=== PATIENT | male | born 1960 | race Two or more races ===

== ENCOUNTER 2025-02-26 12:06 | Outpatient (CLI) | payer OTHER ==
[2025-02-26 12:53] LABS: Hematocrit 42.2 % (41.0-53.0); Hemoglobin 14.4 g/dL (13.5-17.5); Mean Corpuscular Hemoglobin 30.6 pg (28.0-32.0); Mean Corpuscular Volume 90.0 fL (80.0-100.0); Nucleated Red Blood Cells % 0.1 %
[2025-02-26 13:07] LABS: Urine Protein, UAD Negative (Negative)
[2025-02-26 13:15] LABS: Alanine Aminotransferase 29 U/L (7-40); Albumin 4.8 g/dL (3.2-4.8); Alkaline Phosphatase 66 U/L (46-116); Anion Gap 9 (5-15); BUN/Creatinine Ratio 8.7 (10.0-20.0); Calcium 9.8 mg/dL (8.7-10.4); Carbon Dioxide 27 mmol/L (20-31); Chloride 105 mmol/L (98-107); Cholesterol 199 mg/dL (< 200); Glucose 92 mg/dL (74-106); Magnesium 1.9 mg/dL (1.6-2.6); Potassium 4.0 mmol/L (3.5-5.1); Sodium 141 mmol/L (136-145); Total Protein 7.4 g/dL (5.7-8.2); Triglycerides 96 mg/dL (< 150)
[2025-02-26 13:16] LABS: Bilirubin, Total 0.6 mg/dL (0.2-1.0)
[2025-02-26 13:18] LABS: Blood Urea Nitrogen 8 mg/dL (9-23); HDL Cholesterol 64 mg/dL (40-59)
[2025-02-26 13:19] LABS: Prostate Specific Antigen 5.97 ng/mL (0.0-4.0)
[2025-02-27 08:07] LABS: Prostate Specific Antigen 6.4 ng/mL (0.0-4.0)
== END 2025-02-26 17:00 | disposition home or self-care (01) ==
LOC: LAB 12:06
PROVIDERS: ATTEND Student in an Organized Health Care Education/Training Program
DX: E55.9 Vitamin D deficiency, unspecified (principal); D50.0 Iron deficiency anemia secondary to blood loss (chronic); R03.0 Elevated blood-pressure reading, without diagnosis of hypertension; R73.9 Hyperglycemia, unspecified; R35.1 Nocturia
CPT/HCPCS: 36415; 80053; 80061; 81001; 82306; 82607; 83036; 83735; 84153; 84154; 84443; 85025

== ENCOUNTER 2025-02-26 12:39 | Inpatient (IN) | payer OTHER ==
[~2025-02-26] VITALS: Ht 170.2 cm; Wt 76.2 kg
--- NOTE | 2025-02-26 13:14 | DVH ---
EXAM: XY CHEST PORTABLE HISTORY: htn COMPARISON: None TECHNIQUE: Portable AP view of the chest was performed. FINDINGS: No pneumothorax, consolidative infiltrates, or pulmonary edema. There is mild central peribronchial t hickening. The heart is not enlarged. There is thoracic degenerative disc disease and slight dextrosc oliosis. The humeral heads are high-riding consistent with significant rotator cuff tendinopathy bila terally. IMPRESSION: 1. Reactive airways disease. 2. The lungs are otherwise clear.
[2025-02-26 13:27] LABS: Hematocrit 42.1 % (41.0-53.0); Hemoglobin 14.4 g/dL (13.5-17.5); Mean Corpuscular Hemoglobin 30.8 pg (28.0-32.0); Mean Corpuscular Volume 90.1 fL (80.0-100.0); Nucleated Red Blood Cells % 0.1 %
[2025-02-26 13:35] LABS: Chloride 105 mmol/L (98-107); Potassium 4.0 mmol/L (3.5-5.1); Sodium 139 mmol/L (136-145)
[2025-02-26 13:36] LABS: Calcium 9.7 mg/dL (8.7-10.4)
[2025-02-26 13:41] LABS: Blood Urea Nitrogen 10 mg/dL (9-23); Glucose 95 mg/dL (74-106)
[2025-02-26 13:45] LABS: Anion Gap 7 (5-15); BUN/Creatinine Ratio 10.6 (10.0-20.0); Carbon Dioxide 27 mmol/L (20-31)
[2025-02-26] MEDS: hydrALAZINE HCL 20 MG/ML VL IV ONE (15:34)
[2025-02-26 16:35] VITALS: PULSE 122; RESP 13; O2SAT 100
[2025-02-26] MEDS: LABETALOL HCL 20 MG/4 ML VL IV ONE (18:29)
[2025-02-26] MEDS ORDERED: ONDANSETRON HCL 4 MG/2 ML VIAL IV PRN (18:45)
[2025-02-26] MEDS ORDERED: MORPHINE SULFATE INJ 2 MG/ml SYRG IV PRN (18:45)
[2025-02-26] MEDS ORDERED: NITROGLYCERIN 0.4 MG SL TAB SL PRN (18:45)
[2025-02-26] MEDS ORDERED: hydrALAZINE HCL 20 MG/ML VL IV PRN (18:45)
[2025-02-26 19:30] VITALS: O2SAT 100
[2025-02-26 21:45] VITALS: BP 162/84; PULSE 86; RESP 18; TEMP 98.1; O2SAT 98
[2025-02-26 22:32] VITALS: BP 162/84; PULSE 86; RESP 18; TEMP 98.1; O2SAT 98
[2025-02-26] MEDS: METOPROLOL TARTRATE 25 MG TAB PO SCH (22:46)
[2025-02-27] VITALS (8 sets, daily range): BP systolic 124–174; BP diastolic 62–88; PULSE 66–83; RESP 16–20; TEMP 97.8–98.1; O2SAT 96–100
--- NOTE | 2025-02-27 11:15 | ED.PDOC ---
HPI Comments 64-year-old male who presents to the ED for chief complaint of high blood pressure. Patient states that he does not have history of high blood pressure but noted over the past week checks his blood pressure at home and states it was elevated. Patient states he had primary care appointment last Sunday and states PCP told him that his blood pressure was elevated but was not placed on medication. Patient states over the past few days he has been checking his blood pressure at home and states it was elevated and further evaluation. Patient in the ED has blood pressure 204/106 with otherwise stable vitals. Patient now in the ED otherwise denies any other symptoms. Chief Complaint: High Blood Pressure Time Seen by MD: 14:07 Reviewed Notes: Medications, Allergies Allergies: Coded Allergies: NO KNOWN ALLERGIES (Unverified , 02/26/25) Information Source: Patient Mode of Arrival: Ambulatory Brought in by: Self Past Medical History PAST MEDICAL HISTORY: Denies Surgical History: Denies all surgeries Family History Family History: Reviewed,noncontributory to illness Social History Smoker: Non-Smoker Alcohol: Denies ETOH Use Drugs: Denies Drug Use Lives In: Home Constitutional: denies: chills, diaphoresis, fatigue, fever, malaise, sweats, weakness, others EENTM: denies: blurred vision, double vision, ear bleeding, ear discharge, ear drainage, ear pain, ear ringing, eye pain, eye redness, hearing loss, mouth pain, mouth swelling, nasal discharge, nose bleeding, nose congestion, nose pain, photophobia, tearing, throat pain, throat swelling, voice changes, others Respiratory: denies: cough, hemoptysis, orthopnea, SOB at rest, shortness of breath, SOB with excertion, stridor, wheezing, others Cardiovascular: denies: chest pain, dizzy spells, diaphoresis, Dyspnea on exertion, edema, irregular heart beat, left arm pain, lightheadedness, palpitations, PND, syncope, others Gastrointestinal: denies: abdomen distended, abdominal pain, blood streaked bowels, constipated, diarrhea, dysphagia, difficulty swallowing, hematemesis, melena, nausea, poor appetite, poor fluid intake, rectal bleeding, rectal pain, vomiting, others Genitourinary: denies: burning, dysuria, flank pain, frequency, hematuria, incontinence, penile discharge, penile sore, pain, testicle pain, testicle swelling, urgency, others Neurological: denies: dizziness, fainting, headache, left sided numbness, left sided weakness, numbness, paresthesia, pre-existing deficit, right sided numbness, right sided weakness, seizure, speech problems, tingling, tremors, weakness, others Musculoskeletal: denies: back pain, gout, joint pain, joint swelling, muscle pain, muscle stiffness, neck pain, others Integumetry: denies: bruises, change in color, change in hair/nails, dryness, laceration, lesions, lumps, rash, wounds, others Allergic/Immunocompromised: denies: Difficulty Healing, Frequent Infections, Hives, Itching, others Hematologic/Lymphatic: denies: anemia, blood clots, easy bleeding, easy bruising, swollen glands, others Endocrine: denies: excessive hunger, excessive sweating, excessive thirst, excessive urination, flushing, intolerance to cold, intolerance to heat, unexp lained weight gain, unexplained weight loss, others Psychiatric: denies: anxiety, bipolar disorder, depression, hopeless, panic disorder, schizophrenia, sleepless, suicidal, others All Other Systems: Reviewed and Negative Physical Exam General Appearance: No Apparent Distress, Normal HEENT: Normal ENT Inspection, Pharynx Normal, TMs Normal Neck: Full Range of Motion, Non-Tender, Normal, Normal Inspection Respiratory: Chest Non-Tender, Lungs Clear, No Accessory Muscle Use, No Respiratory Distress, Normal Breath Sounds Cardiovascular: No Edema, No JVD, No Murmur, No Gallop, Normal Peripheral Pulse s, Regular Rate/Rhythm Breast Exam: Deferred Gastrointestinal: No Organomegaly, Non Tender, No Pulsatile Mass, Normal Bowel Sounds, Soft Genitalia: Deferred Pelvic: Deferred Rectal: Deferred Extremities: No calf tenderness, Normal capillary refill, Normal inspection, Normal range of motion, Non-tender, No pedal edema Musculoskeletal : Apperance: Normal Neurologic: Alert, way inspector II-XII nml as Tested, No Motor Deficits, Normal Affect, Normal Mood, No Sensory Deficits Cerebellar Function: Normal Reflexes: Normal Skin: Dry, Normal Color, Warm Lymphatic: No Adenopathy Was a procedure done? Was a procedure done?: No CP Differential Dx Differential Diagnosis: Angina Differential Diagnosis: HTN Essential, HTN Accelerated Differential Diagnosis: Chest Wall Pain, Costochondritis X-Ray, Labs, Meds, VS Vital Signs Date Time Temp Pulse Resp B/P (MAP) Pulse Ox O2 Delivery O2 Flow Rate FiO2 02/26/25 16:35 97.9 122 13 223/98 (139) 100 97.9 02/26/25 16:35 122 13 100 Room Air* 0 21 02/26/25 16:12 108 18 204/111 (142) 98 02/26/25 15:34 215/100 02/26/25 15:23 98.2 98 18 215/100 (138) 99 98.2 02/26/25 12:40 98.2 98 18 204/126 99 98.2 Lab Test 02/26/25 13:55 02/26/25 13:04 Range/Units Troponin I High Sensitivity 3 L < 3 L </=54 ng/L White Blood Count 6.7 4.4-10.8 10^3/uL Red Blood Count 4.68 4.5-5.90 10^6/uL Hemoglobin 14.4 13.5-17.5 g/dL Hematocrit 42.1 41.0-53.0 % Mean Corpuscular Volume 90.1 80.0-100.0 fL Mean Corpuscular Hemoglobin 30.8 28.0-32.0 pg Mean Corpuscular Hemoglobin Concent 34.2 32.0-36.0 g/dL Red Cell Distribution Width 14.0 11.8-14.3 % Platelet Count 188 140-450 10^3/uL Mean Platelet Volume 8.0 6.9-10.8 fL Neutrophils (%) (Auto) 63.1 37.0-80.0 % Lymphocytes (%) (Auto) 24.2 10.0-50.0 % Monocytes (%) (Auto) 10.6 0.0-12.0 % Eosinophils (%) (Auto) 1.3 0.0-7.0 % Basophils (%) (Auto) 0.8 0.0-2.0 % Neutrophils # (Auto) 4.2 1.6-8.6 10 ^3/uL Lymphocytes # (Auto) 1.6 0.4-5.4 10 ^3/uL Monocytes # (Auto) 0.7 0-1.3 10 ^3/uL Eosinophils # (Auto) 0.1 0-0.8 10 ^3/uL Basophils # (Auto) 0.1 0-0.2 10 ^3/uL Nucleated Red Blood Cells 0.1 % Sodium Level 139 136-145 mmol/L Potassium Level 4.0 3.5-5.1 mmol/L Chloride Level 105 98-107 mmol/L Carbon Dioxide Level 27 20-31 mmol/L Anion Gap 7 5-15 Blood Urea Nitrogen 10 9-23 mg/dL Creatinine 0.94 0.700-1.30 mg/dL Glomerular Filtration Rate Calc 90 >90 mL/min BUN/Creatinine Ratio 10.6 10.0-20.0 Serum Glucose 95 74-106 mg/dL Calcium Level 9.7 8.7-10.4 mg/dL Current Medications Medications (Trade) Dose Ordered Sig/Rancho Route Start Time Stop Time Status Last Admin Hydralazine HCl (Apresoline Injection) 10 mg ONCE ONCE IV 02/26/25 15:30 02/26/25 15:40 DC 02/26/25 15:34 [place] [id number] Ph: [phone] DIAGNOSTIC IMAGING Diagnostic Imaging Report : [id number] Signed PATIENT: LISA TELLEZ ACCT: [id number] UNIT: [id number] : 1960 LOC: ER ROOM / BED: / AGE / SEX: 64 / M ADM STATUS: REG ER SERVICE 1250 ORDERING PHYSICIAN: JOSE GILBERT MD PROCEDURE(s): CXRP - CHEST PORTABLE REASON: htn ORDER NUMBER(s): [id number], ACCESSION NUMBER(s): [id number] EXAM: XY CHEST PORTABLE HISTORY: htn COMPARISON: None TECHNIQUE: Portable AP view of the chest was performed. FINDINGS: No pneumothorax, consolidative infiltrates, or pulmonary edema. There is mild central peribronchial thickening. The heart is not enlarged. There is thoracic degenerative disc disease and slight dextroscoliosis. The humeral heads are high-riding consistent with significant rotator cuff tendinopathy bilaterally. IMPRESSION: 1. Reactive airways disease. 2. The lungs are otherwise clear. ATED BY: ULISES ALVAREZ MD DICTATED DATE/TIME: 02/26/25 1312 SIGNED BY: ULISES ALVAREZ MD SIGNED DATE/TIME: 02/26/25 1312 CC: Time of 1ST Reevaluation: 14:40 Reevaluation 1ST: Unchanged Patient Education/Counseling: Diagnosis, Treatment Family Education/Counseling: No Family Present SEPSIS Sepsis Screen Date sepsis recognized/suspect: Feb 26, 2025 Time Sepsis recognized/suspect: 1243 Recent Procedure: No On Antibiotic Therapy: No Respiratory Rate >20: No Heart Rate >90: Yes Temp<36 C (96.8 F) or >38.3 C: No SBP <90 or MAP <65 mmHG: No New Acute Mental Status Change: No Is the patient on CPAP, BIPAP,: No Physician Orders Chest Portable (02/26/25 12:50) Electrocardigram (02/26/25 12:50) Electrocardigram (02/26/25 13:50) Electrocardigram (02/26/25 15:50) Vital Signs Date Time Temp Pulse Resp B/P (MAP) Pulse Ox O2 Delivery O2 Flow Rate FiO2 02/26/25 16:35 97.9 122 13 223/98 (139) 100 97.9 02/26/25 16:35 122 13 100 Room Air* 0 21 02/26/25 16:12 108 18 204/111 (142) 98 02/26/25 15:34 215/100 02/26/25 15:23 98.2 98 18 215/100 (138) 99 98.2 02/26/25 12:40 98.2 98 18 204/126 99 98.2 Laboratory Tests Test 02/26/25 13:04 White Blood Count 6.7 10^3/uL (4.4-10.8) Medications Medications Dose Ordered Sig/Rancho Route Start Time Stop Time Status Last Admin Dose Admin Hydralazine HCl 10 mg ONCE ONCE IV 02/26/25 15:30 02/26/25 15:40 DC 02/26/25 15:34 Departure 1 Departure Time of Disposition: 18:08 (Patient presented with hypertension and symptoms concerning for hypertensive emergency. Patient is receiving iv blood pressure medications requiring intensive monitoring. Data: 1. I ordered and reviewed the result of at least 3 labs including a CBC, BMP, and Urinalysis. 2. I independently interpreted the following tests: Chest x-ray is benign. EKG which is Normal Sinus RhythmRisk:This patient has a high risk of morbidity due to further diagnostic testing or treatment and may suffer from an acute cardiac disorder. Workup reveals hypertensive emergency and patient should be admitted for further workup. and possible expert consultation. ) Impression: Primary Impression: Hypertensive urgency Additional Impression: Shortness of breath Disposition: ADMITTED INPATIENT Admit to: Tele Condition: Guarded Critical Care Note Critical Care Time?: Yes Critical care comment: Acute chest pain Authorized and Performed by: Jose Gilbert MD Total critical care time: Approximately 37 minutes Due to a high probability of clinically significant, life threatening deterioration, the patient required my highest level of preparedness to intervene emergently and I personally spent this critical care time directly and personally managing the patient. This critical care time included obtaining a history; examining the patient; pulse oximetry; ordering and review of studies; arranging urgent treatment with development of a management plan; evaluation of patient's response to treatment; frequent reassessment; and, discussions with other providers. This critical care time was performed to assess and manage the high probability of imminent, life-threatening deterioration that could result in multi-organ failure. It was exclusive of separately billable procedures and treating other patients and teaching time. Please see my other sections and the rest of the note for further information on patient assessment and treatment. Stability Stability form required: No Heart Score Heart Score: Heart Score Response (Comments) Value History Slightly Suspicious 0 EKG Normal 0 Age >65 2 Risk Factors No known risk factors 0 Troponin N/A 0 Total 2 I personally scribed for JOSE GILBERT MD ([email or web address]) on 02/26/25 at 14:10. Electronically submitted by Peter Marie ([employer]). I personally scribed for JOSE GILBERT MD ([email or web address]) on 02/26/25 at 15:16. Electronically submitted by Peter Marie ([employer]). I personally scribed for JOSE GILBERT MD ([email or web address]) on 02/26/25 at 16:14. Electronically submitted by Peter Marie ([employer]). JOSE GILBERT MD Feb 26, 2025 14:10
--- NOTE | 2025-02-27 11:23 | DVHHP2 ---
History of Present Illness Reason for Visit: HIGH BLOOD PRESSURE History of Present Illness 64-year-old male presents for evaluation of high blood pressure. Patient reports developing high blood pressure yesterday. He reports being diagnosed with hypertension last week yet he was not started on any medication. This week he has been monitoring his blood pressure and yesterday started running in the 160s. Today blood in the morning was in the 170s so he presented for further evaluation. Denies chest pain, headache or blurred vision. No other acute complaints reported. Past Medical History Hypertension Past Surgical History Denies Family History Noncontributory Smoke: No ALCOHOL: none Drugs: None Lives: with Family Review of Systems Review of Systems Review of systems are currently negative otherwise addressed in HPI. Allergies: Coded Allergies: NO KNOWN ALLERGIES (Unverified , 02/26/25) Exam Vital Signs Vital Signs Date Time Temp Pulse Resp B/P (MAP) Pulse Ox O2 Delivery O2 Flow Rate FiO2 02/26/25 16:35 97.9 122 13 223/98 (139) 100 97.9 02/26/25 16:35 Room Air* 0 21 Exam Gen: 64-year-old male in mild distress Skin: Warm, dry, normal color and texture, no rash. HEENT: Normocephalic atraumatic, mucous membranes moist and pink. Neck: Cervical and supraclavicular nodes normal without enlargement, trachea is midline, thyroid gland is normal without masses. Pulmonary: Clear to auscultation and percussion bilaterally. Cardiac: Sinus tachycardia Abdomen: Soft, nontender, nondistended, bowel sounds present all 4 quadrants, no guarding, no rigidity, no organomegaly. Extremities: No cyanosis, clubbing, no edema Neuro: Cranial nerves II through XII grossly intact, normal affect and speech, no focal motor deficits. Labs/Xrays ORDERING PHYSICIAN: JOSE GILBERT MD PROCEDURE(s): CXRP - CHEST PORTABLE REASON: htn ORDER NUMBER(s): [id number], ACCESSION NUMBER(s): [id number] EXAM: XY CHEST PORTABLE HISTORY: htn COMPARISON: None TECHNIQUE: Portable AP view of the chest was performed. FINDINGS: No pneumothorax, consolidative infiltrates, or pulmonary edema. There is mild central peribronchial thickening. The heart is not enlarged. There is thoracic degenerative disc disease and slight dextroscoliosis. The humeral heads are high-riding consistent with significant rotator cuff tendinopathy bilaterally. IMPRESSION: 1. Reactive airways disease. 2. The lungs are otherwise clear. Labs Test 02/26/25 13:55 02/26/25 13:04 Range/Units Troponin I High Sensitivity 3 L </=54 ng/L White Blood Count 6.7 4.4-10.8 10^3/uL Red Blood Count 4.68 4.5-5.90 10^6/uL Hemoglobin 14.4 13.5-17.5 g/dL Hematocrit 42.1 41.0-53.0 % Mean Corpuscular Volume 90.1 80.0-100.0 fL Mean Corpuscular Hemoglobin 30.8 28.0-32.0 pg Mean Corpuscular Hemoglobin Concent 34.2 32.0-36.0 g/dL Red Cell Distribution Width 14.0 11.8-14.3 % Platelet Count 188 140-450 10^3/uL Mean Platelet Volume 8.0 6.9-10.8 fL Neutrophils (%) (Auto) 63.1 37.0-80.0 % Lymphocytes (%) (Auto) 24.2 10.0-50.0 % Monocytes (%) (Auto) 10.6 0.0-12.0 % Eosinophils (%) (Auto) 1.3 0.0-7.0 % Basophils (%) (Auto) 0.8 0.0-2.0 % Neutrophils # (Auto) 4.2 1.6-8.6 10 ^3/uL Lymphocytes # (Auto) 1.6 0.4-5.4 10 ^3/uL Monocytes # (Auto) 0.7 0-1.3 10 ^3/uL Eosinophils # (Auto) 0.1 0-0.8 10 ^3/uL Basophils # (Auto) 0.1 0-0.2 10 ^3/uL Nucleated Red Blood Cells 0.1 % Sodium Level 139 136-145 mmol/L Potassium Level 4.0 3.5-5.1 mmol/L Chloride Level 105 98-107 mmol/L Carbon Dioxide Level 27 20-31 mmol/L Anion Gap 7 5-15 Blood Urea Nitrogen 10 9-23 mg/dL Creatinine 0.94 0.700-1.30 mg/dL Glomerular Filtration Rate Calc 90 >90 mL/min BUN/Creatinine Ratio 10.6 10.0-20.0 Serum Glucose 95 74-106 mg/dL Calcium Level 9.7 8.7-10.4 mg/dL SEPSIS Sepsis Screen Date sepsis recognized/suspect: Feb 26, 2025 Time Sepsis recognized/suspect: 1634 Recent Procedure: No On Antibiotic Therapy: No Respiratory Rate >20: No Heart Rate >90: No Temp<36 C (96.8 F) or >38.3 C: No SBP <90 or MAP <65 mmHG: No New Acute Mental Status Change: No Is the patient on CPAP, BIPAP,: No Physician Orders Chest Portable (02/26/25 12:50) Electrocardigram (02/26/25 12:50) Electrocardigram (02/26/25 13:50) Electrocardigram (02/26/25 15:50) Thyroid Stimulating Hormone (02/26/25 18:35) Metoprolol Tartrate Tablet (Lopressor Ta (02/26/25 22:00) Hydralazine Injection (Apresoline Inject (02/26/25 18:45) Aspirin Tablet (02/27/25 10:00) Admit (02/26/25 18:35) Ondansetron Hcl (Zofran) (02/26/25 18:45) Cardiac Diet-2gna,Lofat,Lochol (02/27/25 Breakfast) Echo 2d Mode Cardiac Dop (02/26/25 18:35) Condition: Stable (02/26/25 18:35) Acetaminophen Tablet (Tylenol Tablet) (02/26/25 18:45) Bedrest With Bathroom Privileg (02/26/25 18:35) Nitroglycerin Sublingual (Ntrostat Subli (02/26/25 18:45) Morphine Sulfate Injection (02/26/25 18:45) Stat Ekg For Chest Pain (02/26/25 18:35) Notify Md Of Changes From Base (02/26/25 18:35) Mobile Sales Assistant For 24 Hours (02/26/25 18:35) Emergency Dysrhythmia Protocol (02/26/25 18:35) Rhythm Strips Once Every Shift (02/26/25 18:35) Oxygen By Nasal Cannula (02/26/25 18:35) Vital Signs Date Time Temp Pulse Resp B/P (MAP) Pulse Ox O2 Delivery O2 Flow Rate FiO2 02/26/25 16:35 97.9 122 13 223/98 (139) 100 97.9 02/26/25 16:35 122 13 100 Room Air* 0 21 02/26/25 16:12 108 18 204/111 (142) 98 02/26/25 15:34 215/100 02/26/25 15:23 98.2 98 18 215/100 (138) 99 98.2 02/26/25 12:40 98.2 98 18 204/126 99 98.2 Laboratory Tests Test 02/26/25 13:04 White Blood Count 6.7 10^3/uL (4.4-10.8) Medications Medications Dose Ordered Sig/Rancho Route Start Time Stop Time Status Last Admin Dose Admin Hydralazine HCl 10 mg ONCE ONCE IV 02/26/25 15:30 02/26/25 15:40 DC 02/26/25 15:34 10 MG Assessment/Plan Assessment/Plan Assessment Hypertensive urgency Plan Admit the patient to Med surge to the hospitalist Start metoprolol b.i.d. As needed antihypertensives Echocardiogram pending Continue treatment per orders. Plan discussed with: Patient My Orders Orders - CECI KESSLER Procedure Category Date Status Time Thyroid Stimulating LAB 02/26/25 Verified Hormone 18:35 Metoprolol Tartrate PHA 02/26/25 Verified Tablet (Lopressor Ta 22:00 Hydralazine Injection PHA 02/26/25 Verified (Apresoline Inject 18:45 Aspirin Tablet PHA 02/27/25 Verified 10:00 Admit ADMIT 02/26/25 Verified 18:35 Ondansetron Hcl PHA 02/26/25 Verified (Zofran) 18:45 Cardiac DIET 02/27/25 Verified Diet-2gna,Lofat,Lochol Breakfast Echo 2d Mode Cardiac US 02/26/25 Verified DOP 18:35 Condition: Stable [place] 02/26/25 Verified 18:35 Acetaminophen Tablet PHA 02/26/25 Verified (Tylenol Tablet) 18:45 Bedrest With Bathroom [place] 02/26/25 Verified Privileg 18:35 Nitroglycerin PHA 02/26/25 Verified Sublingual (Ntrostat 18:45 Morphine Sulfate PHA 02/26/25 Verified Injection 18:45 Stat Ekg For Chest [facility] 02/26/25 Verified Pain 18:35 Notify Md Of Changes [facility] 02/26/25 Verified From Base 18:35 Mobile Sales Assistant For [facility] 02/26/25 Verified 24 Hours 18:35 Emergency Dysrhythmia [facility] 02/26/25 Verified Protocol 18:35 Rhythm Strips Once [facility] 02/26/25 Verified Every Shift 18:35 Oxygen By Nasal RT 02/26/25 Verified Cannula 18:35 Date of Service: Feb 26, 2025 Billing Provider: CECI KESSLER Common Visit Codes: [id number] INP/OBS CARE (HIGH) CECI KESSLER Feb 26, 2025 18:41
--- NOTE | 2025-02-27 14:29 | DVHPN2 ---
Reviewed: H&P Changes from previous H/P or p: No Changes General: Per HPI Objective Vitals Vital Signs Date Time Temp Pulse Resp B/P (MAP) Pulse Ox O2 Delivery O2 Flow Rate FiO2 02/27/25 13:00 98.0 69 18 174/88 (116) 97 98.0 02/27/25 08:00 Room Air* 0 21 Intake/Output Intake and Output 02/27/25 07:00 Intake Total 300 ml Balance 300 ml Intake Oral 300 ml # Voids 2 Exam GEN: Healthy appearing, well-developed, NAD. HEENT: NC/AT; MMM. CV: RRR, no m/r/g. LUNGS: CTAB, no w/r/c. ABD: Soft, NT/ND, NBS, no masses or organomegaly. EXT: skin Warm, well perfused. no rashes. No clubbing, cyanosis, or edema. NEURO: Ambulating with no limitations. No focal deficits. Medications Current Medications Medications Dose Ordered Sig/Rancho Route Start Time Stop Time Status Last Admin Dose Admin Hydralazine HCl 10 mg Q6HP PRN IV 02/26/25 18:45 Aspirin 81 mg DAILY PO 02/27/25 10:00 02/27/25 09:08 81 MG Ondansetron HCl 4 mg Q4HP PRN IV 02/26/25 18:45 Acetaminophen 650 mg Q6HP PRN PO 02/26/25 18:45 Nitroglycerin 0.4 mg Q5MINP PRN SL 02/26/25 18:45 Morphine Sulfate 2 mg Q30M PRN IV 02/26/25 18:45 Carvedilol 6.25 mg Q12HR PO 02/27/25 22:00 UNV Losartan Potassium 25 mg DAILY PO 02/27/25 14:30 UNV Laboratory Results Laboratory Tests 02/26/25 13:04 Labs and/or images reviewed: Labs reviewed by me, Image(s) reviewed by me Assessment/Plan Assessment/Plan 64-year-old male presents for evaluation of high blood pressure. Patient reports developing high blood pressure yesterday. He reports being diagnosed with hypertension last week yet he was not started on any medication. This week he has been monitoring his blood pressure and yesterday started running in the 160s. Today blood in the morning was in the 170s so he presented for further evaluation. Denies chest pain, headache or blurred vision. No other acute complaints reported. Past Medical History Hypertension 02/27: Blood pressure improved from SBP 200s to SBP 150s. Patient was given hydralazine and metoprolol Lopressor 25 b.i.d.. Lopressor is known to control more heart rate. We will switch Lopressor to Coreg 6 b.i.d. and start losartan 12.5 daily. Patient will need 1 more night monitoring to make sure these medications keep patient blood pressure less than 160 and no other further complications arise. Likely discharge tomorrow a.m. if blood pressure remains controlled. -note for tomorrow: If blood pressure stable with Coreg 6 b.i.d. in losartan 12.5 daily,. And if echo no significant concern, we will be safe to discharge home tomorrow. Diagnosis Hypertensive crisis Hypertension Plan: Coreg 6 b.i.d. Losartan 12.5 daily Cardiac diet Q.4 vital IV pain control IV hydralazine 10 mg q.6h for SBP more than 170 Pain control including IV morphine Med surge Full code Plan discussed with: Patient My Orders Orders - MAO ABBOTT MD Procedure Category Date Status Time Carvedilol Tablet PHA 02/27/25 Logged (Coreg Tablet) 22:00 Losartan Tablet PHA 02/27/25 Logged (Cozaar Tablet) 14:30 Date of Service: Feb 27, 2025 Billing Provider: MAO ABBOTT MD Common Visit Codes: [id number] INP/OBS CARE(HIGH) MAO ABBOTT MD Feb 27, 2025 14:28
[2025-02-27] MEDS ORDERED: LOSARTAN POTASSIUM 25 MG TAB PO SCH (14:30)
[2025-02-27] MEDS: LOSARTAN POTASSIUM 25 MG TAB PO SCH (14:52)
[2025-02-27] MEDS: ACETAMINOPHEN 325 MG TAB PO PRN (15:15)
[2025-02-27] MEDS: PROCHLORPERAZINE EDISYLATE 5 MG/ML 2ML VIAL IV ONE (15:45)
[2025-02-27] MEDS: CARVEDILOL 3.125 MG TAB PO SCH (21:43)
[2025-02-28 01:00] VITALS: BP 123/71; PULSE 69; RESP 16; TEMP 98; O2SAT 100
--- NOTE | 2025-02-28 04:07 | DVHSR ---
APPROVED REPORT EXAM: Two-dimensional and M-mode echocardiogram with Doppler and color Doppler. Blood Pressure: 125/62 mmHg INDICATION Hypertension RISK FACTORS Height: 5'7, Weight: 166 DIMENSIONS LVDd4.6 (3.8-5.7cm)LA (2D)3.5 (1.9-4.0cm)Aortic Root2.9 (2.0-3.7cm) LVDs3.2 (2.5-4.0cm)LA (MM) (1.9-4.0cm)Aortic Cusp Exc1.7 (1.5-2.0cm) EF (%) 55.0 (55-70%)Rt. Atrium4.2 (1.9-4.0cm)Asc. Aorta cm IVSd0.8 (0.7-1.1cm)RV (D)4.6 (1.8-2.4cm) PWd0.8 (0.7-1.1cm) Mitral Valve MitralMitral Stenosis E wave0.70m/sMV Mean GR.mmHg A wave0.73m/sMV Peak GR.mmHg E/A ratio1.02D MVAcm2 DECEL [id number] 1/2 Timems Aortic Valve Aortic ValveAortic Stenosis V11.20m/Tierney Mean GR.mmHg V21.29m/Tierney Peak GR.7mmHg LVOT Diameter1.8 (1.8-2.4cm)Doppler AVA2.37cm2 Pulmonic Valve V20.82m/s Tricuspid Valve TR Velocity2.80m/s [id number] Other Information Technically limited study due to body habitus. Conclusion MILD LVH AND MILD LV DIASTOLIC DYSFUNCTION LV EF IS 65% NORMAL VALVES NO EFFUSION NORMAL RV FUNCTION
[2025-02-28 05:00] VITALS: BP 109/65; PULSE 68; RESP 18; TEMP 97.6; O2SAT 96
[2025-02-28 07:02] LABS: Anion Gap 7 (5-15); Carbon Dioxide 28 mmol/L (20-31); Chloride 107 mmol/L (98-107); Potassium 4.5 mmol/L (3.5-5.1); Sodium 142 mmol/L (136-145)
[2025-02-28 07:04] LABS: Calcium 9.2 mg/dL (8.7-10.4)
[2025-02-28 07:08] LABS: BUN/Creatinine Ratio 11.8 (10.0-20.0); Blood Urea Nitrogen 11 mg/dL (9-23); Glucose 87 mg/dL (74-106)
[2025-02-28 09:00] VITALS: BP 125/75; PULSE 74; RESP 20; TEMP 98.2; O2SAT 99
[2025-02-28 13:00] VITALS: BP 147/90; PULSE 68; RESP 20; TEMP 98.6; O2SAT 96
[2025-02-28] MEDS ORDERED: LOS25T PO (13:25)
[2025-02-28] MEDS ORDERED: CARV-214 PO (13:25)
[2025-02-28] MEDS ORDERED: ASPI-325 PO (13:25)
[2025-02-28 13:56] VITALS: BP 147/90; PULSE 68; RESP 20; TEMP 98.6; O2SAT 96
== END 2025-02-28 16:00 | disposition home or self-care (01) | DRG 305 ==
LOC: ER 12:39 → OVERFLOW 18:35 → WEST WING 21:41
PROVIDERS: ADMIT Student in an Organized Health Care Education/Training Program; ATTEND Student in an Organized Health Care Education/Training Program
DX: I16.0 Hypertensive urgency (principal); I10 Essential (primary) hypertension; Z79.899 Other long term (current) drug therapy
CPT/HCPCS: 36415; 71045; 80048; 84443; 84484; 85025; 93306; 96374; 96375; 99291; G0378